=== PATIENT | female | born 1995 | race Two or more races ===

== ENCOUNTER 2018-02-17 12:18 | Outpatient (CLI) | payer OTHER | END 2018-02-17 12:25 | disposition home or self-care (01) | LOC: SONOGRAMA 12:18 | DX: M06.4 Inflammatory polyarthropathy (principal) ==

== ENCOUNTER 2024-09-03 14:22 | Outpatient (CLI) | payer OTHER ==
[~2024-09-03 14:22] MED LIST: TUSNEL LIQUID178 ML PO; ZITHROMAX500 MG PO; ZYRTEC10 M3 PO
== END 2024-09-03 14:27 | disposition home or self-care (01) ==
LOC: LAB 14:22
PROVIDERS: ATTEND Specialist
DX: E55.9 Vitamin D deficiency, unspecified (principal)

== ENCOUNTER 2024-09-15 23:22 | Emergency (ER) | payer OTHER ==
[~2024-09-15] VITALS: Ht 157.5 cm; Wt 81.6 kg
[2024-09-16] MEDS ORDERED: ACETAMINOPHEN 500 MG GEL..CAP PO ONE ×2 (00:45→01:09)
[2024-09-16] MEDS ORDERED: GUAIFENESIN/DEXTROMETHORPHAN 10ML BLIST.PACK PO ONE ×2 (00:45→01:09)
[2024-09-16] MEDS ORDERED: DEXAMETHASONE SODIUM PHOSPHATE 4 MG/ML VIAL IM ONE (00:45)
[2024-09-16] MEDS ORDERED: DEXAMETHASONE SODIUM PHOSPHATE 4 MG/ML VIAL ONE (01:10)
[2024-09-16 01:29] LABS: HEMATOCRIT 39.8 % (36.0-45.00); HEMOGLOBIN 13.8 g/dL (12.0-15.00); MEAN CELL VOLUME 87.5 fL (80.00-100.00); MEAN CORPUSCULAR HEMOGLOBIN 30.3 pg (27.00-32.0); MEAN CORPUSCULAR HGB CONC 34.6 g/dl (32.0-36.0); PLATELET COUNT 191 K/uL (150-450); RED BLOOD COUNT 4.55 M/uL (4.00-6.00); RED CELL DISTRIBUTION WIDTH 13.2 % (11.5-14.5)
== END 2024-09-16 03:34 | disposition home or self-care (01) ==
LOC: ER 23:25
PROVIDERS: General Practice
DX: J06.9 Acute upper respiratory infection, unspecified (principal); Z20.822 Contact with and (suspected) exposure to COVID-19

== ENCOUNTER 2024-09-18 15:06 | Outpatient (CLI) | payer OTHER | END 2024-09-18 15:09 | disposition home or self-care (01) | LOC: SONOGRAMA 15:06 | PROVIDERS: ATTEND Obstetrics & Gynecology | DX: R10.2 Pelvic and perineal pain (principal) ==

== ENCOUNTER → 2024-09-22 09:31 | Outpatient (CLI) | payer OTHER ==
[2024-09-22 10:39] LABS: PH,URINE 5.5 (5.0-8.0); URINE APPEARANCE Clear; URINE BILIRRUBIN Negative (NEGATIVE); URINE BLOOD Moderate; URINE COLOR Yellow; URINE GLUCOSE Negative (NEGATIVE); URINE KETONE Negative (NEGATIVE); URINE LEUKOCYTE Trace; URINE NITRATE Negative; URINE PROTEIN Negative (NEGATIVE); URINE UROBILINOGEN 0.2 E.U./dl
[2024-09-22 10:40] LABS: URINE EPITHELIAL CELLS 12.1 uL (0.0-38.8); URINE RBC 8.1 uL (0.0-20.8); URINE WBC 15.8 uL (0.0-23.2)
[2024-09-22 10:46] LABS: URINE CAST 0.14 uL (0.0-1.40)
[2024-09-22 11:50] LABS: HEMOGLOBIN 14.3 g/dL (12.0-15.00); MEAN CELL VOLUME 87.3 fL (80.00-100.00); MEAN CORPUSCULAR HEMOGLOBIN 29.6 pg (27.00-32.0); MEAN CORPUSCULAR HGB CONC 33.9 g/dl (32.0-36.0); PLATELET COUNT 260 K/uL (150-450); RED BLOOD COUNT 4.82 M/uL (4.00-6.00); RED CELL DISTRIBUTION WIDTH 13.2 % (11.5-14.5)
[2024-09-22 12:29] LABS: BILIRUBIN TOTAL 0.45 mg/dL (0.3-1.2); CALCIUM 8.9 mg/dL (8.5-10.1); CHOL HDL RATIO 2.9 (0-5.0); CREATININE SERUM 0.68 mg/dL (0.55-1.02); GFR 102.29; GLOBULINA 3.4 G/DL (2.4-3.5); POTASSIUM 4.64 mEq/L (3.5-5.1); T4 FREE 0.92 NG/ML (0.76-1.46); TOTAL PROTEIN 7.4 gm/dL (6.4-8.2); TSH 1.55 uIU/mL (0.358-3.74)
[2024-09-24 13:20] LABS: RAPID PLASMA REAGIN NONREACTIVE BY RPR (NONREACTIVE)
== END | disposition home or self-care (01) ==
LOC: LAB 09:31
PROVIDERS: ATTEND Obstetrics & Gynecology
DX: D64.9 Anemia, unspecified (principal); K76.9 Liver disease, unspecified; E03.8 Other specified hypothyroidism; E55.9 Vitamin D deficiency, unspecified; N39.0 Urinary tract infection, site not specified; E78.5 Hyperlipidemia, unspecified; Z11.4 Encounter for screening for human immunodeficiency virus [HIV]; A50.1 Early congenital syphilis, latent; K75.9 Inflammatory liver disease, unspecified; N91.2 Amenorrhea, unspecified